=== PATIENT | female | born 1990 | race American Indian/Alaskan Native ===

== ENCOUNTER 2018-07-28 03:40 | Emergency (ER) | payer MEDICAID, OTHER ==
--- NOTE | 2018-07-28 04:41 | XRay Report ---
FINAL REPORT PROCEDURE: XR CHEST ROUTINE 2V TECHNIQUE: PA and lateral chest radiographs were obtained. CPT 73481 HISTORY: chest pain COMPARISON: No prior studies are available for comparison. FINDINGS: Heart: Normal. Mediastinum/Vessels: Normal. Lungs/Pleural space: Normal. Bony thorax: No acute osseous abnormality. Other: IMPRESSION: Normal examination.
[2018-07-28 06:03] VITALS: BP 118/85
[2018-07-28] MEDS ORDERED: TESSALON PERLES PO ONE (06:18)
[2018-07-28] MEDS ORDERED: TORADOL IM ONE (06:18)
[2018-07-28] MEDS ORDERED: ULTRAM PO ONE (06:18)
[2018-07-28] MEDS ORDERED: ZITHROMAX PO ONE (06:18)
--- NOTE | 2018-07-28 06:39 | Emergency Department Report ---
- General Chief Complaint: Chest Pain Stated Complaint: CHEST/ARM PAIN/SOB Time Seen by Provider: 07/28/18 06:11 Source: patient Mode of arrival: Ambulatory Limitations: No Limitations - History of Present Illness Initial Comments: 28-year-old female with a past medical history of asthma presents to the Hospital complaining of cough and chest pain. Patient states she has had cough and stuffy nose on and off for about one month. Cough is nonproductive. She is unsure if she's had fevers but states she is hot at times. Increasing wheezing episodes reported however, denies shortness of breath at this time. She has been taking DayQuil and NyQuil without improvement Patient now having pain to her name, left chest, and left sided neck that she experiences only mild coughin g, sneezing, or with palpation. Patient denies sick contacts or recent international travel. PMD: None - Related Data Previous Rx's Medication Instructions Recorded Last Taken Type Albuterol Sulfate [Ventolin HFA] 2 puff IH Q4H PRN #1 hfa.aer.ad 07/28/18 Unknown Rx Azithromycin [Zithromax TAB] 250 mg PO QDAY #4 tablet 07/28/18 Unknown Rx Benzonatate [Tessalon Perles] 100 mg PO Q8HR PRN #20 capsule 07/28/18 Unknown Rx Ibuprofen [Motrin] 800 mg PO Q8HR PRN #30 tablet 07/28/18 Unknown Rx traMADol [Ultram 50 MG tab] 50 mg PO Q6HR PRN #15 tablet 07/28/18 Unknown Rx Allergies Allergy/AdvReac Type Severity Reaction Status Date / Time No Known Allergies Allergy Unverified 07/28/18 03:43 ED Review of Systems ROS: Stated complaint: CHEST/ARM PAIN/SOB Other details as noted in HPI Comment: All other systems reviewed and negative ED Past Medical Hx - Past Medical History Previous Medical History?: Yes Hx Asthma: Yes - Surgical History Past Surgical History?: No - Social History Smoking Status: Former Smoker Substance Use Type: Alcohol - Medications Home Medications: Home Medications Medication Instructions Recorded Confirmed Last Taken Type Albuterol Sulfate [Ventolin HFA] 2 puff IH Q4H PRN #1 hfa.aer.ad 07/28/18 Unknown Rx Azithromycin [Zithromax TAB] 250 mg PO QDAY #4 tablet 07/28/18 Unknown Rx Benzonatate [Tessalon Perles] 100 mg PO Q8HR PRN #20 capsule 07/28/18 Unknown Rx Ibuprofen [Motrin] 800 mg PO Q8HR PRN #30 tablet 07/28/18 Unknown Rx traMADol [Ultram 50 MG tab] 50 mg PO Q6HR PRN #15 tablet 07/28/18 Unknown Rx ED Physical Exam - General Limitations: No Limitations - Other Other exam information: General: No limitations, patient is alert in no acute distress Head exam: Atraumatic, normocephalic Eyes exam: Normal appearance, pupils equal reactive to light, extraocular movements intact ENT: Moist mucous membrane, normal oropharynx Neck exam: Normal inspection, full range of motion, no meningismus, left-sided neck/trapezius muscle tenderness Respiratory exam: Clear to auscultation bilateral, no wheezes, rales, crackles. No tachypnea or accessory muscle use Cardiovascular: Normal rate and rhythm, normal heart sounds. Reproducible sternal chest wall tenderness Abdomen: Soft, nondistended, and nontender, with normal bowel sounds, no rebound, or guarding Extremity: Full range of motion normal inspection no deformity Back: Normal Inspection, full range of motion, no tenderness Neurologic: Alert, oriented x3, cranial nerves intact, no motor or sensory deficit Psychiatric: normal affect, normal mood Skin: Warm, dry, intact ED Course Vital Signs 07/28/18 07/28/18 07/28/18 03:44 05:01 05:05 Temperature 98.4 F 98.3 F Pulse Rate 84 81 85 Respiratory 16 16 16 Rate Blood Pressure 137/96 134/92 Blood Pressure 117/85 [Left] O2 Sat by Pulse 98 100 99 Oximetry 07/28/18 06:00 Temperature Pulse Rate 66 Respiratory 14 Rate Blood Pressure 118/85 Blood Pressure [Left] O2 Sat by Pulse 96 Oximetry ED Medical Decision Making - EKG Data -: EKG Interpreted by Me EKG shows normal: sinus rhythm, axis (qrs 51), QRS complexes (qrsd 77), ST-T waves (no steim/t inv) Rate: normal (83) - EKG Data When compared to previous EKG there are: previous EKG unavailable - Radiology Data Radiology results: report reviewed cxr: naf - Medical Decision Making Patient has reproducible chest pain likely secondary to cough on and off times one month. Chest x-ray is normal. Since patient has had a extended duration of symptoms will be covered with Z-Hero and symptomatic treatment. PMD follow-up encouraged. Patient treated with Tessalon Perles, Toradol, tramadol, and azithromycin in the ED - Differential Diagnosis costochondritis, bronchitis, pneumonia, URI Critical Care Time: No Critical care attestation.: If time is entered above; I have spent that time in minutes in the direct care of this critically ill patient, excluding procedure time. ED Disposition Clinical Impression: Acute bronchitis, Costochondritis, acute, Neck muscle strain Disposition: TO HOME OR SELFCARE Is pt being admited?: No Does the pt Need Aspirin: No Condition: Stable Instructions: Costochondritis (ED), Acute Bronchitis (ED), Cervical Sprain (ED) Additional Instructions: Take the medication as prescribed. Follow up with your doctor or the doctor/ clinic provided. Return if symptoms worsen as indicated by your discharge instructions Prescriptions: Albuterol Sulfate [Ventolin HFA] 2 puff IH Q4H PRN #1 hfa.aer.ad PRN Reason: Shortness Of Breath Azithromycin [Zithromax TAB] 250 mg PO QDAY #4 tablet Benzonatate [Tessalon Perles] 100 mg PO Q8HR PRN #20 capsule PRN Reason: Cough Ibuprofen [Motrin] 800 mg PO Q8HR PRN #30 tablet PRN Reason: Pain, Moderate (4-6) traMADol [Ultram 50 MG tab] 50 mg PO Q6HR PRN #15 tablet PRN Reason: Pain Referrals: MELANI MENDIOLA MD [Primary Care Provider] - 3-[address] [facility] [Provider Group] - 3-5 Days Time of Disposition: 06:48
== END 2018-07-28 07:03 | disposition home or self-care (01) ==
LOC: ED 03:40
DX: S16.1XXA Strain of muscle, fascia and tendon at neck level, initial encounter (principal); J20.9 Acute bronchitis, unspecified; M94.0 Chondrocostal junction syndrome [Tietze]; J45.909 Unspecified asthma, uncomplicated; Z87.891 Personal history of nicotine dependence; X58.XXXA Exposure to other specified factors, initial encounter; Y93.89 Activity, other specified; Y92.89 Other specified places as the place of occurrence of the external cause; Y99.8 Other external cause status
CPT/HCPCS: 71046; 93005; 93010; 96372; 99283; J1885